=== PATIENT | male | born 1965 | race Caucasian/White ===

== ENCOUNTER 2017-09-28 14:26 | Emergency (ER) | payer OTHER ==
[~2017-09-28] VITALS: Ht 170.2 cm; Wt 75.1 kg
[~2017-09-28 14:26] MED LIST: IBUP-1484 PO
[2017-09-28 14:48] VITALS: BP 135/84
[2017-09-28] MEDS ORDERED: LIDOCAINE-MPF 2%, 2ML ONE (15:26)
[2017-09-28] MEDS ORDERED: KETOROLAC 30 MG/1 ML IM ONE (15:30)
[2017-09-28 15:41] LABS: BASOPHILS # (AUTO) 0.06 x10^3/uL (0-0.1); BASOPHILS % (AUTO) 1 % (0-1); EOSINOPHILS # (AUTO) 0.09 x10^3/uL (0-0.4); EOSINOPHILS % (AUTO) 2 % (1-7); LYMPHOCYTES # (AUTO) 1.25 x10^3/uL (1-3.4); LYMPHOCYTES % (AUTO) 21 % (22-44); MD NO; MEAN CORPUSCULAR HEMOGLOBIN 30.4 pg (27.5-34.5); MEAN CORPUSCULAR HGB CONC 34.4 g/dL (33.2-36.2); MEAN CORPUSCULAR VOLUME 88.4 fL (81-97); MEAN PLATELET VOLUME 9.2 fL (7.4-10.4); MONOCYTES # (AUTO) 0.39 x10^3/uL (0.2-0.8); MONOCYTES % (AUTO) 6 % (2-9); NEUTROPHILS # (AUTO) 4.23 x10^3/uL (1.8-6.8); NEUTROPHILS % (AUTO) 70 % (42-75); PLATELET COUNT 159 x10^3/uL (130-400); RED BLOOD COUNT 5.17 x10^6/uL (4.38-5.82); RED CELL DISTRIBUTION WIDTH 13.3 % (9.4-14.8)
[2017-09-28 15:42] LABS: HCT (SEDRATE) 46.1 % (39.2-51.8)
[2017-09-28 15:50] LABS: ALBUMIN 3.1 g/dL (3.4-5.0); ANION GAP 6 mmol/L (5-15); CALCIUM 8.4 mg/dL (8.5-10.1); CHLORIDE 109 mmol/L (98-107); CREATININE 0.89 mg/dL (0.7-1.3)
[2017-09-28] MEDS ORDERED: CEFAZOLIN 1,000 MG IM ONE (16:00)
[2017-09-28] MEDS ORDERED: HYDROcodone/APAP 5/325 TABLET PO ONE (16:00)
[2017-09-28] MEDS ORDERED: HYDROcodone/APAP 5/325 TABLET ONE (16:11)
[2017-09-28] MEDS ORDERED: CEFAZOLIN PMX 1GM/50ML 0 ML ONE (16:11)
[2017-09-28] MEDS ORDERED: CEFAZOLIN 1,000 MG ONE (16:12)
== END 2017-09-28 16:33 | disposition home or self-care (01) ==
LOC: ED 16:27
DX: L03.116 Cellulitis of left lower limb (principal); E11.9 Type 2 diabetes mellitus without complications
CPT/HCPCS: 20610; 36415; 73564; 80048; 82040; 84550; 85025; 85651; 96372; 99285; J0690

== ENCOUNTER 2017-09-29 11:54 | Emergency (ER) | payer OTHER ==
[~2017-09-29] VITALS: Ht 167.6 cm; Wt 75.0 kg
[2017-09-29 11:58] VITALS: BP 126/80
== END 2017-09-29 12:28 | disposition home or self-care (01) ==
LOC: ED 12:20
DX: L03.116 Cellulitis of left lower limb (principal); E11.9 Type 2 diabetes mellitus without complications
CPT/HCPCS: 99281

== ENCOUNTER 2018-09-14 10:39 | Outpatient (CLI) | payer OTHER | END 2018-09-14 23:59 | disposition home or self-care (01) | LOC: CFH 10:39 | PROVIDERS: ATTEND Nurse Practitioner Primary Care | DX: Z12.5 Encounter for screening for malignant neoplasm of prostate (principal); M25.461 Effusion, right knee; R53.83 Other fatigue; E11.9 Type 2 diabetes mellitus without complications | CPT/HCPCS: 36415; 73564; 80053; 80061; 82043; 82306; 82607; 82746; 83036; 84443; 84550; 85025; 85651; 86140; G0103 ==

== ENCOUNTER 2020-01-06 16:19 | Inpatient (IN) | payer OTHER ==
[~2020-01-06] VITALS: Ht 167.6 cm; Wt 68.1 kg
[~2020-01-06 16:19] MED LIST changes: -IBUP-1484 PO; +IBUP-1902 PO
--- NOTE | 2020-01-06 16:27 | NUR ---
EKG IN TRIAGE
[2020-01-06] MEDS ORDERED: DEXAMETHASONE 4 MG/ML, 1ML ONE (16:50)
[2020-01-06] MEDS ORDERED: DEXAMETHASONE 4 MG/ML, 1ML IVPush ONE (17:00)
[2020-01-06 17:18] LABS: BASOPHILS % (AUTO) 0 % (0-1); EOSINOPHILS % (AUTO) 0 % (1-7); LYMPHOCYTES % (AUTO) 12 % (22-44); MEAN CORPUSCULAR HEMOGLOBIN 29.9 pg (27.5-34.5); MEAN CORPUSCULAR HGB CONC 33.7 g/dL (33.2-36.2); MEAN PLATELET VOLUME 8.4 fL (7.4-10.4); MONOCYTES % (AUTO) 7 % (2-9); NEUTROPHILS % (AUTO) 81 % (42-75); PLATELET COUNT 129 x10^3/uL (130-400); RED BLOOD COUNT 4.93 x10^6/uL (4.38-5.82); RED CELL DISTRIBUTION WIDTH 12.8 % (9.4-14.8)
[2020-01-06 17:29] LABS: ALBUMIN 2.6 g/dL (3.4-5.0); ANION GAP 9 mmol/L (5-15); CALCIUM 7.6 mg/dL (8.5-10.1); CHLORIDE 107 mmol/L (98-107); CREATININE 0.95 mg/dL (0.7-1.3)
[2020-01-06] MEDS ORDERED: CEFTRIAXONE PMX 1GM/50ML 50 ML IV ONE (17:30)
[2020-01-06] MEDS: DOXYCYCLINE 100 MG in DEXTROSE 5% 250 ML IV SCH ×2 (17:30→19:10)
[2020-01-06] MEDS ORDERED: CEFTRIAXONE PMX 1GM/50ML 50 ML ONE (17:31)
[2020-01-06 17:36] LABS: D-DIMER (DIC) 2.16 ug/mlFEU (0.00-0.52); MD SCAN; PROTIME 10.7 Seconds (9.6-11.5)
[2020-01-06 17:37] LABS: ALANINE AMINOTRANSFERASE 78 U/L (12-78); ALKALINE PHOSPHATASE 70 U/L (45-117); BILIRUBIN,TOTAL 0.8 mg/dL (0.2-1.0); TOTAL PROTEIN 6.9 g/dL (6.4-8.2)
--- NOTE | 2020-01-06 18:05 | NUR ---
updated daughter in lobby. abx per apr, food, call [facility]nderson, fall precs, nad. as
--- NOTE | 2020-01-06 18:53 | NUR ---
REPORT TO DREW BRAY.
--- NOTE | 2020-01-06 19:21 | NUR ---
Patient moved to hospital bed. VSS. Offers no complaints at this time.
[2020-01-06] MEDS ORDERED: PROMETHAZINE 25 MG/ML, 1ML IM PRN (20:00)
[2020-01-06] MEDS ORDERED: morphine SULFATE 10 MG/ML, 1ML IVPush PRN (20:00)
[2020-01-06] MEDS ORDERED: ACETAMINOPHEN 325 MG TABLET PO PRN ×2 (20:00)
[2020-01-06] MEDS ORDERED: PHARMACY MAY ADJ FOR RENAL FX MC PRN (20:00)
[2020-01-06] MEDS ORDERED: LABETALOL 5MG/ML, 20ML IVPush PRN (20:00)
--- NOTE | 2020-01-06 20:25 | NUR ---
Daughter in Law-Sophie [phone]. Will be the point of contact for patient
[2020-01-06 21:04] VITALS: BP 125/74
[2020-01-06] MEDS: ASCORBIC ACID 500 MG TABLET PO SCH (22:23)
[2020-01-06] MEDS: MELATONIN 5 MG TABLET PO SCH (22:23)
[2020-01-06] MEDS: INSULIN LISPRO 100 UNITS/ML, PEN SQ-INSULIN SCH (22:24)
[2020-01-06] MEDS: ENOXAPARIN 60 MG/0.6 ML SQ SCH (22:24)
[2020-01-06] MEDS ORDERED: OMNIPAQUE 350 MG/ML, 100ML BOTTLE ONE (23:22)
[2020-01-07 00:53] VITALS: BP 114/74
[2020-01-07 06:59] VITALS: BP 119/71
[2020-01-07] MEDS ORDERED: ZINC SULFATE 220 MG CAPSULE PO SCH (09:00)
[2020-01-07] MEDS: THIAMINE 100MG TABLET PO SCH (09:06)
[2020-01-07] MEDS: DOXYCYCLINE 100MG TABLET PO SCH ×2 (09:07→20:35)
[2020-01-07] MEDS: DEXAMETHASONE 4 MG/ML, 1ML IVPush SCH (09:07)
[2020-01-07] MEDS: ASCORBIC ACID 500 MG TABLET PO SCH ×2 (09:07→20:35)
[2020-01-07] MEDS: CHOLECALCIFEROL 5,000u TAB PO SCH (09:32)
[2020-01-07] MEDS: INSULIN LISPRO 100 UNITS/ML, PEN SQ-INSULIN SCH ×4 (09:33→20:42)
[2020-01-07] MEDS: ZINC SULFATE 220 MG CAPSULE PO SCH (11:23)
[2020-01-07 12:28] VITALS: BP 131/78
[2020-01-07] MEDS ORDERED: INSULIN GLARGINE 100 UNITS/ML, PEN SQ-INSULIN SCH ×2 (14:00→21:00)
[2020-01-07] MEDS: CEFTRIAXONE PMX 1GM/50ML 50 ML IVPB SCH (16:59)
[2020-01-07 19:12] VITALS: BP 109/71
[2020-01-07] MEDS: MELATONIN 5 MG TABLET PO SCH (20:35)
[2020-01-07] MEDS: ENOXAPARIN 60 MG/0.6 ML SQ SCH (20:36)
[2020-01-08 01:23] VITALS: BP 101/65
[2020-01-08 06:00] LABS: BASOPHILS % (AUTO) 0 % (0-1); EOSINOPHILS % (AUTO) 0 % (1-7); LYMPHOCYTES % (AUTO) 11 % (22-44); MEAN CORPUSCULAR HEMOGLOBIN 30.2 pg (27.5-34.5); MEAN CORPUSCULAR HGB CONC 34.2 g/dL (33.2-36.2); MONOCYTES % (AUTO) 6 % (2-9); NEUTROPHILS % (AUTO) 82 % (42-75); PLATELET COUNT 182 x10^3/uL (130-400); RED BLOOD COUNT 4.89 x10^6/uL (4.38-5.82); RED CELL DISTRIBUTION WIDTH 12.7 % (9.4-14.8)
[2020-01-08 06:06] LABS: CHLORIDE 108 mmol/L (98-107)
[2020-01-08 06:18] LABS: MD NO
[2020-01-08 06:25] LABS: ALANINE AMINOTRANSFERASE 79 U/L (12-78); ALBUMIN 2.4 g/dL (3.4-5.0); ALKALINE PHOSPHATASE 66 U/L (45-117); ANION GAP 7 mmol/L (5-15); BILIRUBIN,TOTAL 0.7 mg/dL (0.2-1.0); CALCIUM 8.4 mg/dL (8.5-10.1); CREATININE 0.89 mg/dL (0.7-1.3); TOTAL PROTEIN 6.6 g/dL (6.4-8.2)
[2020-01-08] MEDS: CHOLECALCIFEROL 5,000u TAB PO SCH ×2 (08:27→11:15)
[2020-01-08] MEDS: THIAMINE 100MG TABLET PO SCH (08:27)
[2020-01-08] MEDS: INSULIN LISPRO 100 UNITS/ML, PEN SQ-INSULIN SCH ×4 (08:27→21:46)
[2020-01-08] MEDS: DEXAMETHASONE 4 MG/ML, 1ML IVPush SCH (08:28)
[2020-01-08] MEDS: ASCORBIC ACID 500 MG TABLET PO SCH ×2 (08:28→21:41)
[2020-01-08] MEDS: DOXYCYCLINE 100MG TABLET PO SCH ×2 (08:28→21:41)
[2020-01-08] MEDS: ZINC SULFATE 220 MG CAPSULE PO SCH (12:14)
[2020-01-08 13:39] VITALS: BP 117/78
[2020-01-08] MEDS: CEFTRIAXONE PMX 1GM/50ML 50 ML IVPB SCH (17:42)
[2020-01-08] MEDS: ENOXAPARIN 60 MG/0.6 ML SQ SCH (21:41)
[2020-01-08] MEDS: MELATONIN 5 MG TABLET PO SCH (21:41)
[2020-01-08] MEDS: INSULIN GLARGINE 100 UNITS/ML, PEN SQ-INSULIN SCH (21:45)
[2020-01-08 22:02] VITALS: BP 103/68
[2020-01-09 04:15] VITALS: BP 106/67
[2020-01-09 05:09] LABS: BASOPHILS % (AUTO) 2 % (0-1); EOSINOPHILS % (AUTO) 1 % (1-7); LYMPHOCYTES % (AUTO) 19 % (22-44); MEAN CORPUSCULAR HGB CONC 33.9 g/dL (33.2-36.2); MEAN PLATELET VOLUME 8.9 fL (7.4-10.4); MONOCYTES % (AUTO) 9 % (2-9); NEUTROPHILS % (AUTO) 70 % (42-75); PLATELET COUNT 202 x10^3/uL (130-400); RED BLOOD COUNT 4.69 x10^6/uL (4.38-5.82); RED CELL DISTRIBUTION WIDTH 12.6 % (9.4-14.8)
[2020-01-09 05:18] LABS: ALBUMIN 2.4 g/dL (3.4-5.0); ANION GAP 8 mmol/L (5-15); CALCIUM 8.3 mg/dL (8.5-10.1); CHLORIDE 108 mmol/L (98-107); CREATININE 0.83 mg/dL (0.7-1.3)
[2020-01-09 05:27] LABS: ALANINE AMINOTRANSFERASE 83 U/L (12-78); ALKALINE PHOSPHATASE 63 U/L (45-117); BILIRUBIN,TOTAL 0.5 mg/dL (0.2-1.0); TOTAL PROTEIN 6.3 g/dL (6.4-8.2)
[2020-01-09 06:19] LABS: MD SCAN
[2020-01-09 07:32] VITALS: BP 107/68
[2020-01-09] MEDS: DOXYCYCLINE 100MG TABLET PO SCH ×2 (08:10→20:43)
[2020-01-09] MEDS: INSULIN LISPRO 100 UNITS/ML, PEN SQ-INSULIN SCH ×4 (08:10→22:59)
[2020-01-09] MEDS: ASCORBIC ACID 500 MG TABLET PO SCH ×2 (08:10→20:44)
[2020-01-09] MEDS: CHOLECALCIFEROL 5,000u TAB PO SCH (08:11)
[2020-01-09] MEDS: THIAMINE 100MG TABLET PO SCH (08:11)
[2020-01-09] MEDS: DEXAMETHASONE 4 MG/ML, 1ML IVPush SCH (08:11)
[2020-01-09] MEDS: ZINC SULFATE 220 MG CAPSULE PO SCH (11:45)
[2020-01-09 12:47] VITALS: BP 117/77
[2020-01-09] MEDS ORDERED: REMDESIVIR 200 MG in SODIUM CHLORIDE 0.9% 250 ML IVPB ONE (15:30)
[2020-01-09] MEDS: CEFTRIAXONE PMX 1GM/50ML 50 ML IVPB SCH ×2 (18:01→18:34)
[2020-01-09 18:52] VITALS: BP 114/70
[2020-01-09] MEDS: ENOXAPARIN 60 MG/0.6 ML SQ SCH (20:43)
[2020-01-09] MEDS: MELATONIN 5 MG TABLET PO SCH (20:44)
[2020-01-09] MEDS: INSULIN GLARGINE 100 UNITS/ML, PEN SQ-INSULIN SCH (23:00)
[2020-01-10 00:21] VITALS: BP 98/63
[2020-01-10 06:23] LABS: BASOPHILS % (AUTO) 0 % (0-1); EOSINOPHILS % (AUTO) 1 % (1-7); LYMPHOCYTES % (AUTO) 14 % (22-44); MEAN CORPUSCULAR HEMOGLOBIN 30.1 pg (27.5-34.5); MEAN CORPUSCULAR HGB CONC 33.8 g/dL (33.2-36.2); MEAN PLATELET VOLUME 8.5 fL (7.4-10.4); MONOCYTES % (AUTO) 9 % (2-9); NEUTROPHILS % (AUTO) 76 % (42-75); PLATELET COUNT 238 x10^3/uL (130-400); RED BLOOD COUNT 4.86 x10^6/uL (4.38-5.82); RED CELL DISTRIBUTION WIDTH 12.5 % (9.4-14.8)
[2020-01-10 06:26] LABS: MD NO
[2020-01-10 06:34] LABS: ALANINE AMINOTRANSFERASE 126 U/L (12-78); ALBUMIN 2.5 g/dL (3.4-5.0); ANION GAP 7 mmol/L (5-15); CALCIUM 8.4 mg/dL (8.5-10.1); CHLORIDE 110 mmol/L (98-107); CREATININE 0.76 mg/dL (0.7-1.3)
[2020-01-10 06:37] LABS: ALKALINE PHOSPHATASE 65 U/L (45-117); BILIRUBIN,TOTAL 0.6 mg/dL (0.2-1.0); TOTAL PROTEIN 6.6 g/dL (6.4-8.2)
[2020-01-10 06:59] VITALS: BP 117/75
[2020-01-10] MEDS: INSULIN LISPRO 100 UNITS/ML, PEN SQ-INSULIN SCH ×4 (07:00→20:32)
[2020-01-10] MEDS: FUROSEMIDE 40 MG/4 ML IV SCH (08:56)
[2020-01-10] MEDS: ASCORBIC ACID 500 MG TABLET PO SCH ×2 (08:57→20:25)
[2020-01-10] MEDS: THIAMINE 100MG TABLET PO SCH (08:57)
[2020-01-10] MEDS: DOXYCYCLINE 100MG TABLET PO SCH ×2 (08:57→20:25)
[2020-01-10] MEDS: DEXAMETHASONE 4 MG/ML, 1ML IVPush SCH (08:57)
[2020-01-10] MEDS: CHOLECALCIFEROL 5,000u TAB PO SCH (08:57)
[2020-01-10] MEDS: ZINC SULFATE 220 MG CAPSULE PO SCH (11:22)
[2020-01-10 12:03] VITALS: BP 102/65
[2020-01-10] MEDS: REMDESIVIR 100 MG in SODIUM CHLORIDE 0.9% 250 ML IVPB SCH (17:11)
[2020-01-10 18:57] VITALS: BP 107/70
[2020-01-10] MEDS: CEFTRIAXONE PMX 1GM/50ML 50 ML IVPB SCH (20:24)
[2020-01-10] MEDS: MELATONIN 5 MG TABLET PO SCH (20:25)
[2020-01-10] MEDS: ENOXAPARIN 60 MG/0.6 ML SQ SCH (20:30)
[2020-01-10] MEDS: INSULIN GLARGINE 100 UNITS/ML, PEN SQ-INSULIN SCH (20:33)
[2020-01-11 00:48] VITALS: BP 99/67
[2020-01-11 04:15] LABS: BASOPHILS % (AUTO) 1 % (0-1); EOSINOPHILS % (AUTO) 1 % (1-7); LYMPHOCYTES % (AUTO) 17 % (22-44); MEAN CORPUSCULAR HEMOGLOBIN 30.4 pg (27.5-34.5); MEAN CORPUSCULAR HGB CONC 34.2 g/dL (33.2-36.2); MEAN PLATELET VOLUME 8.5 fL (7.4-10.4); MONOCYTES % (AUTO) 12 % (2-9); NEUTROPHILS % (AUTO) 70 % (42-75); PLATELET COUNT 245 x10^3/uL (130-400); RED BLOOD COUNT 4.87 x10^6/uL (4.38-5.82); RED CELL DISTRIBUTION WIDTH 12.4 % (9.4-14.8)
[2020-01-11 04:16] LABS: MD NO
[2020-01-11 04:26] LABS: ALANINE AMINOTRANSFERASE 134 U/L (12-78); ALBUMIN 2.6 g/dL (3.4-5.0); ANION GAP 5 mmol/L (5-15); CALCIUM 8.7 mg/dL (8.5-10.1); CHLORIDE 108 mmol/L (98-107); CREATININE 0.76 mg/dL (0.7-1.3)
[2020-01-11 04:28] LABS: ALKALINE PHOSPHATASE 66 U/L (45-117); BILIRUBIN,TOTAL 0.6 mg/dL (0.2-1.0); TOTAL PROTEIN 6.9 g/dL (6.4-8.2)
[2020-01-11] MEDS: INSULIN LISPRO 100 UNITS/ML, PEN SQ-INSULIN SCH ×4 (07:00→20:11)
[2020-01-11 07:13] VITALS: BP 98/62
[2020-01-11] MEDS: FUROSEMIDE 40 MG/4 ML IV SCH (08:52)
[2020-01-11] MEDS: ASCORBIC ACID 500 MG TABLET PO SCH ×2 (08:52→20:06)
[2020-01-11] MEDS: DOXYCYCLINE 100MG TABLET PO SCH ×2 (08:52→20:06)
[2020-01-11] MEDS: CHOLECALCIFEROL 5,000u TAB PO SCH (08:53)
[2020-01-11] MEDS: DEXAMETHASONE 4 MG/ML, 1ML IVPush SCH (08:53)
[2020-01-11] MEDS: THIAMINE 100MG TABLET PO SCH (08:53)
[2020-01-11] MEDS: ENOXAPARIN 60 MG/0.6 ML SQ SCH ×2 (08:53→20:07)
[2020-01-11] MEDS: ZINC SULFATE 220 MG CAPSULE PO SCH (11:08)
[2020-01-11 14:28] VITALS: BP 104/70
[2020-01-11] MEDS: REMDESIVIR 100 MG in SODIUM CHLORIDE 0.9% 250 ML IVPB SCH (17:15)
[2020-01-11 19:37] VITALS: BP 112/71
[2020-01-11] MEDS: CEFTRIAXONE PMX 1GM/50ML 50 ML IVPB SCH (20:06)
[2020-01-11] MEDS: MELATONIN 5 MG TABLET PO SCH (20:06)
[2020-01-11] MEDS: INSULIN GLARGINE 100 UNITS/ML, PEN SQ-INSULIN SCH (20:10)
[2020-01-12 01:55] VITALS: BP 108/71
[2020-01-12 03:11] LABS: ALBUMIN 2.5 g/dL (3.4-5.0); ANION GAP 5 mmol/L (5-15); BASOPHILS % (AUTO) 1 % (0-1); CALCIUM 8.5 mg/dL (8.5-10.1); CHLORIDE 106 mmol/L (98-107); EOSINOPHILS % (AUTO) 2 % (1-7); LYMPHOCYTES % (AUTO) 18 % (22-44); MEAN CORPUSCULAR HEMOGLOBIN 30.4 pg (27.5-34.5); MEAN CORPUSCULAR HGB CONC 34.3 g/dL (33.2-36.2); MEAN PLATELET VOLUME 8.5 fL (7.4-10.4); MONOCYTES % (AUTO) 11 % (2-9); NEUTROPHILS % (AUTO) 68 % (42-75); PLATELET COUNT 250 x10^3/uL (130-400); RED BLOOD COUNT 4.89 x10^6/uL (4.38-5.82); RED CELL DISTRIBUTION WIDTH 12.6 % (9.4-14.8)
[2020-01-12 03:14] LABS: ALANINE AMINOTRANSFERASE 114 U/L (12-78); ALKALINE PHOSPHATASE 65 U/L (45-117); BILIRUBIN,TOTAL 0.6 mg/dL (0.2-1.0); CREATININE 0.74 mg/dL (0.7-1.3); TOTAL PROTEIN 6.4 g/dL (6.4-8.2)
[2020-01-12 03:18] LABS: MD NO
[2020-01-12] MEDS: INSULIN LISPRO 100 UNITS/ML, PEN SQ-INSULIN SCH ×4 (07:00→20:41)
[2020-01-12] MEDS: DOXYCYCLINE 100MG TABLET PO SCH ×2 (07:25→20:33)
[2020-01-12] MEDS: THIAMINE 100MG TABLET PO SCH (07:25)
[2020-01-12] MEDS: DEXAMETHASONE 4 MG/ML, 1ML IVPush SCH (07:25)
[2020-01-12] MEDS: FUROSEMIDE 40 MG/4 ML IV SCH (07:25)
[2020-01-12] MEDS: ASCORBIC ACID 500 MG TABLET PO SCH ×2 (07:25→20:33)
[2020-01-12] MEDS: CHOLECALCIFEROL 5,000u TAB PO SCH (07:25)
[2020-01-12] MEDS: ENOXAPARIN 60 MG/0.6 ML SQ SCH (07:27)
[2020-01-12 10:14] VITALS: BP 100/65
[2020-01-12] MEDS: ZINC SULFATE 220 MG CAPSULE PO SCH (11:28)
[2020-01-12 13:53] VITALS: BP 111/71
[2020-01-12] MEDS: REMDESIVIR 100 MG in SODIUM CHLORIDE 0.9% 250 ML IVPB SCH (17:11)
[2020-01-12 18:52] VITALS: BP 109/70
[2020-01-12] MEDS: CEFTRIAXONE PMX 1GM/50ML 50 ML IVPB SCH (20:33)
[2020-01-12] MEDS: MELATONIN 5 MG TABLET PO SCH (20:33)
[2020-01-12] MEDS: ENOXAPARIN 40 MG/0.4 ML SQ SCH (20:33)
[2020-01-12] MEDS: INSULIN GLARGINE 100 UNITS/ML, PEN SQ-INSULIN SCH (20:41)
[2020-01-13 01:36] VITALS: BP 113/74
[2020-01-13 05:51] LABS: BASOPHILS % (AUTO) 1 % (0-1); EOSINOPHILS % (AUTO) 2 % (1-7); LYMPHOCYTES % (AUTO) 22 % (22-44); MEAN CORPUSCULAR HEMOGLOBIN 30.6 pg (27.5-34.5); MEAN CORPUSCULAR HGB CONC 34.6 g/dL (33.2-36.2); MEAN PLATELET VOLUME 9.4 fL (7.4-10.4); MONOCYTES % (AUTO) 13 % (2-9); NEUTROPHILS % (AUTO) 62 % (42-75); PLATELET COUNT 282 x10^3/uL (130-400); RED BLOOD COUNT 5.11 x10^6/uL (4.38-5.82); RED CELL DISTRIBUTION WIDTH 12.7 % (9.4-14.8)
[2020-01-13 06:07] LABS: ALBUMIN 2.6 g/dL (3.4-5.0); ANION GAP 6 mmol/L (5-15); CALCIUM 8.5 mg/dL (8.5-10.1); CHLORIDE 105 mmol/L (98-107)
[2020-01-13 06:11] LABS: ALANINE AMINOTRANSFERASE 103 U/L (12-78); ALKALINE PHOSPHATASE 66 U/L (45-117); BILIRUBIN,TOTAL 0.6 mg/dL (0.2-1.0); CREATININE 0.77 mg/dL (0.7-1.3); TOTAL PROTEIN 6.7 g/dL (6.4-8.2)
[2020-01-13 06:19] LABS: MD NO
[2020-01-13] MEDS: INSULIN LISPRO 100 UNITS/ML, PEN SQ-INSULIN SCH ×3 (07:00→16:00)
[2020-01-13 07:31] VITALS: BP 104/68
[2020-01-13] MEDS: DOXYCYCLINE 100MG TABLET PO SCH (09:00)
[2020-01-13] MEDS: ENOXAPARIN 40 MG/0.4 ML SQ SCH (09:35)
[2020-01-13] MEDS: DEXAMETHASONE 4 MG/ML, 1ML IVPush SCH (09:35)
[2020-01-13] MEDS: ASCORBIC ACID 500 MG TABLET PO SCH (09:35)
[2020-01-13] MEDS: CHOLECALCIFEROL 5,000u TAB PO SCH (09:35)
[2020-01-13] MEDS: THIAMINE 100MG TABLET PO SCH (09:35)
[2020-01-13] MEDS: FUROSEMIDE 40 MG/4 ML IV SCH (09:35)
[2020-01-13] MEDS: ZINC SULFATE 220 MG CAPSULE PO SCH (11:12)
[2020-01-13 13:23] VITALS: BP 101/60
[2020-01-13] MEDS: CEFTRIAXONE PMX 1GM/50ML 50 ML IVPB SCH (15:44)
[2020-01-13] MEDS ORDERED: THIA100T67 PO (16:11)
[2020-01-13] MEDS ORDERED: ASPI-650 PO (16:11)
[2020-01-13] MEDS ORDERED: CHOL500045 PO (16:11)
[2020-01-13] MEDS ORDERED: ZINC220C7 PO (16:11)
[2020-01-13] MEDS ORDERED: ASCO500T9 PO (16:11)
[2020-01-13] MEDS ORDERED: DEXA4TAB PO (16:11)
[2020-01-13] MEDS: REMDESIVIR 100 MG in SODIUM CHLORIDE 0.9% 250 ML IVPB SCH (17:00)
[2020-01-15 06:26] VITALS: BP 145/82
== END 2020-01-13 17:59 | disposition home or self-care (01) | DRG 177 ==
LOC: ED 16:48 → EDIP 18:29 → 3N 20:59
PROVIDERS: ADMIT Family Medicine; ATTEND Internal Medicine
PROC: XW033E5 Introduction of Remdesivir Anti-infective into Peripheral Vein, Percutaneous Approach, New Technology Group 5 (ICD-10-PCS; principal; 2020-01-09)
DX: U07.1 COVID-19 (principal); J12.89 Other viral pneumonia; J96.01 Acute respiratory failure with hypoxia; E11.65 Type 2 diabetes mellitus with hyperglycemia; D69.6 Thrombocytopenia, unspecified; Z83.3 Family history of diabetes mellitus
CPT/HCPCS: 36415; 71045; 71275; 80053; 82728; 82962; 83036; 83605; 83615; 83735; 84145; 85025; 85049; 85379; 85384; 85610; 85730; 86140; 87040; 87635; 93005; 96374; 96375; 99291; G0378; J0696; J1100; J1650; J1940; J7060; Q9967; J1815; J7050